=== PATIENT | male | born 1950 | race Caucasian/White ===

== ENCOUNTER 2017-07-23 08:00 | Emergency (ER) | payer MEDICARE, OTHER ==
[2017-07-23 08:14] VITALS: BP 172/70
--- NOTE | 2017-07-23 08:47 | ER Document Report ---
HPI - HPI Pain Level: 5 Notes: Patient is a 66-year-old male with a history of hyperlipidemia who presents the ED complaining of right sided rib pain status post fall 2 days ago. Patient states that he was on a 1 foot high step stool and he fell onto a toolbox on his right side. Patient states that he has had pain since then. He has noticed some bruising developed in the lower right flank. Patient states that movements make the pain worse. Patient does take Naprosyn with minimal relief. He still eating and drinking without difficulties. He still urinating normally and having normal bowel movements. He has not noticed any blood in his urine or stool. Denies any drug allergies. Denies any other significant past medical history. Denies any headache, fever, head injury, neck pain, URI, sore throat, chest pain, palpitations, syncope, cough, shortness of breath, wheeze, dyspnea, abdominal pain, nausea/vomiting/diarrhea, urinary retention, dysuria, hematuria, loss of control of bowel or bladder, numbness/tingling, saddle anesthesia, muscle paralysis/weakness, or rash. - DERM Skin Color: Normal Past Medical History - Social History Smoking Status: Never Smoker Family History: Reviewed & Not Pertinent Patient has suicidal ideation: No Patient has homicidal ideation: No Renal/ Medical History: Denies: Hx Peritoneal Dialysis Vertical Provider Document - CONSTITUTIONAL Agree With Documented VS: Yes Notes: PHYSICAL EXAMINATION: GENERAL: Well-appearing, well-nourished and in no acute distress. HEAD: Atraumatic, normocephalic. EYES: Pupils equal round and reactive to light, extraocular movements intact, sclera anicteric, conjunctiva are normal. ENT: EAC clear b/l. TM's intact b/l without erythema, fluid, or perforation. Nares patent and without discharge. oropharynx clear without exudates. No tonsilar hypertrophy or erythema. Moist mucous membranes. No sinus tenderness. NECK: Normal range of motion, supple without lymphadenopathy LUNGS: Breath sounds clear to auscultation bilaterally and equal. No wheezes rales or rhonchi. HEART: Regular rate and rhythm without murmurs, rubs, gallops. ABDOMEN: Soft, nontender, nondistended abdomen. No guarding, no rebound. No masses appreciated. Normal bowel sounds present. No CVA tenderness bilaterally. No rigidity or ecchymosis noted. Musculoskeletal: LE's b/l: FROM to passive/active. Strength 5+/5. Back: + ecchymosis noted rt inferior flank near the iliac crest that is non- tender. + tenderness to the rt ribs approx #7-10. No vertebral point tenderness. Extremities: No cyanosis, clubbing, or edema b/l. Peripheral pulses 2+. Capillary refill less than 3 seconds. NEUROLOGICAL: Cranial nerves grossly intact. Normal speech, normal gait. Normal sensory, motor exams PSYCH: Normal mood, normal affect. SKIN: Warm, Dry, normal turgor, no rashes or lesions noted. - INFECTION CONTROL TRAVEL OUTSIDE OF THE [place] IN LAST 30 DAYS: No - RESPIRATORY O2 Sat by Pulse Oximetry: 99 Course - Re-evaluation Re-evalutation: 07/23/17 09:55 Patient is an afebrile, well-hydrated, 66-year-old male who presents to the ED with right rib pain, suspect contusion at this time. Vitals are stable. PE is otherwise unremarkable. X-ray was unremarkable for any pneumothorax, fracture or dislocation. reviewed with Dr. Monsalve who is in agreement with dicharge/ plan and we do not have a high suspicion for any organ laceration or internal bleeding at this time. Oxycodone 10 mg given for pain in the ED. Solu-Medrol 125 mg given for inflammation. I will send him with a prescription for a muscle relaxer, Voltaren gel, naproxen, and a short course of tramadol for breakthrough pain only. Conservative measures otherwise for symptoms. Recheck with your PCM in 3-5 days. Consider consult with orthopedics/physical therapy. Return to the ED with any worsening/concerning symptoms otherwise as reviewed in discharge. Patient is in agreement. - Vital Signs Vital signs: Temp Pulse Resp BP Pulse Ox 97.4 F 56 L 20 172/70 H 99 07/23/17 08:03 07/23/17 08:03 07/23/17 08:03 07/23/17 08:03 07/23/17 08:03 Discharge - Discharge Clinical Impression: Contusion of rib on right side Qualifiers: Encounter type: initial encounter Qualified Code(s): S20.211A - Contusion of right front wall of thorax, initial encounter Condition: Stable Disposition: HOME, SELF-CARE Instructions: Rib Contusion ([facility]), Muscle Relaxers ([facility]), Ice Massage ([facility]), Warm Packs ([facility]) Additional Instructions: Rest, Ice Tylenol/ibuprofen as needed Light stretches daily Strength exercises as able Moist heat and massage may help F/u with your PCP in 3-5 days for a recheck Consider consult(s) with Orthopedics/physical therapy for ongoing/worsening symptoms Return to the ED with any worsening symptoms and/or development of fever, headache, chest pain, palpitations, syncope, shortness of breath, trouble breathing, abdominal pain, n/v/d, blood in stool/urine, loss of control of bowel /bladder, urinary retention, muscle weakness/paralysis, saddle anesthesia, numbness/tingling, or other worsening symptoms that are concerning to you. Prescriptions: Baclofen [Baclofen 10 mg Tablet] 5 mg PO BID PRN #10 tablet PRN Reason: Diclofenac Sodium [Voltaren] 4 gm TP QID PRN #100 gel..gm. PRN Reason: Naproxen 500 mg PO BID PRN #30 tablet PRN Reason: Tramadol HCl 50 mg PO TID #15 tablet Forms: Elevated Blood Pressure Referrals: DEMETRIO FLANNERY MD [Primary Care Provider] - Follow up in 3-5 days
--- NOTE | 2017-07-23 09:50 | RADIOLOGY REPORT (SQ) ---
EXAM DESCRIPTION: RIBS RIGHT W/PA CHEST COMPLETED DATE/TIME: 07/23/2017 9:04 am REASON FOR STUDY: Pain to rt lower ribs, ecchymosis COMPARISON: None. TECHNIQUE: Frontal view of the chest and additional views of the right ribs acquired. NUMBER OF VIEWS: PA chest Right rib detail two views LIMITATIONS: None. FINDINGS: FRONTAL CXR: No pneumothorax. No pleural effusion. No atelectasis or infiltrates. Cardi ac silhouette size, brady unremarkable. RIBS: No displaced rib fractures. No lytic or blastic bony lesions. OTHER: No other significant finding. IMPRESSION: NO PNEUMOTHORAX. NO DISPLACED RIB FRACTURES. COMMENT: SITE OF TRAUMA/COMPLAINT MARKED/STAMP COMPLETED: Yes TECHNICAL DOCUMENTATION: JOB ID: [id number] [employer]- All Rights Reserved
[2017-07-23] MEDS ORDERED: OXYCODONE HCL IR 5 MG TABLET PO ONE (09:53)
[2017-07-23] MEDS ORDERED: METHYLPREDNISOLONE INJ 125 MG/2 ML SDV IM ONE (10:04)
== END 2017-07-23 10:45 | disposition home or self-care (01) ==
LOC: ER 08:00
DX: S20.211A Contusion of right front wall of thorax, initial encounter (principal); S30.1XXA Contusion of abdominal wall, initial encounter; W17.89XA Other fall from one level to another, initial encounter
CPT/HCPCS: 99283; 96372; 71101; J2930; A9270

== ENCOUNTER → 2018-03-19 | Outpatient (CLI) | payer MEDICARE, OTHER ==
--- NOTE | 2018-03-20 08:31 | RADIOLOGY REPORT (SQ) ---
EXAM DESCRIPTION: MRI RT LOWER JOINT WITHOUT COMPLETED DATE/TIME: 03/19/2018 10:00 pm REASON FOR STUDY: M25.561 PAIN IN RIGHT KNEE M25.561 PAIN IN RIGHT KNEE COMPARISON: Prior MRI and plain radiographs 2015 TECHNIQUE: Rightknee images acquired and stored on PACS. Multiplanar images include fat sensitive s equences as T1, water sensitive sequences as FST2 or STIR, cartilage sensitive sequences as FSPD, and gradient echo sequences. LIMITATIONS: None. FINDINGS: JOINT AND BURSAE: Small joint effusion. No popliteal cyst. BONE CORTEX AND MARROW: No alteration of signal to suggest marrow replacement. No worrisome bone lesi ons. No occult fracture. ACL: Intact. No degeneration or ganglion cyst. PCL: PCL is abnormal. There is either chronic high-grade partial tear, or marked mucoid degeneration . This is increased since the previous study. MCL: Intact. No periligamentous edema or fluid. LCL: Intact. No periligamentous edema or fluid. MEDIAL MENISCUS: No tears. No abnormal signal. LATERAL MENISCUS: No tears. No abnormal signal. MEDIAL COMPARTMENT: Cartilage preserved. No bone bruises or reactive marrow edema. No osteophytes. LATERAL COMPARTMENT: Cartilage preserved. No bone bruises or reactive marrow edema. No osteophytes. PATELLA: No chondromalacia. No subchondral cysts. Medial and lateral retinacula intact. EXTENSOR MECHANISM: Intact. Quadriceps and patella tendons normal. SOFT TISSUES: Adjacent muscles and subcutaneous tissues normal. Normal flow void in popliteal artery and vein. OTHER: No other significant finding. IMPRESSION: Abnormal signal in the PCL indicating either chronic high-grade partial tear or marked m ucoid degeneration. Increased from previous. Small joint effusion. TECHNICAL DOCUMENTATION: JOB ID: [id number] [employer]- All Rights Reserved Reading location - IP/workstation name: [email or web address]
== END ==
LOC: RAD 20:26
PROVIDERS: ATTEND Orthopaedic Surgery
DX: M25.561 Pain in right knee (principal)

== ENCOUNTER 2020-10-15 11:08 | Emergency (ER) | payer MEDICARE, OTHER ==
[2020-10-15] MEDS ORDERED: DEXAMETHASONE 4 MG TABLET PO ONE (12:42)
[2020-10-15] MEDS ORDERED: IPRATROPIUM/ALBUTEROL 0.5-2.5 MG/3 ML AMPUL NEB ONE (12:42)
--- NOTE | 2020-10-15 13:59 | ER Document Report ---
ED Respiratory Problem - General Chief Complaint: Cough Stated Complaint: COUGH,CHILLS Time Seen by Provider: 10/15/20 12:39 Primary Care Provider: DEMETRIO FLANNERY MD [Primary Care Provider] - Follow up as needed Notes: CHIEF COMPLAINT: Cough for 4 days HPI: 6-year-old male presenting for cough for 4 days. Shortness of breath only with a cough. No chest pain. No abdominal pain headache nausea vomiting. Has taken no medications for his symptoms. He is concerned about Covid. ROS: See HPI - all other systems were reviewed and are otherwise negative Constitutional: no fever Eyes: no drainage, no blurred vision ENT: no runny nose, no sore throat Cardiovascular: no chest pain Resp: + SOB, + cough GI: no vomiting, no diarrhea, no abdominal pain : no dysuria Integumentary: no rash Allergy: no hives Musculoskeletal: no extremity pain or swelling Neurological: no numbness/tingling, no weakness MEDICATIONS: I agree with the patient medications as charted by the RN. ALLERGIES: I agree with the allergies as charted by the RN. PAST MEDICAL HISTORY/PAST SURGICAL HISTORY: Reviewed and agree as charted by RN. SOCIAL HISTORY: Reviewed and agree as charted by RN. FAMILY HISTORY: No significant familial comorbid conditions directly related to patient complaint EXAM: Reviewed vital signs as charted by RN. CONSTITUTIONAL: Alert and oriented and responds appropriately to questions. Well-appearing; well-nourished HEAD: Normocephalic; atraumatic EYES: PERRL; Conjunctivae clear, sclerae non-icteric ENT: normal nose; no rhinorrhea; moist mucous membranes; pharynx without lesions noted, no uvula edema or deviation, no tonsillar hypertrophy, phonation normal NECK: Supple without meningismus; non-tender; no cervical lymphadenopathy, no masses CARD: RRR; no murmurs, no clicks, no rubs, no gallops; symmetric distal pulses RESP: Normal chest excursion without splinting or tachypnea; breath sounds clear and equal bilaterally; no wheezes, no rhonchi, no rales, pulse oximetry 100% on room air not hypoxic. Spastic cough is noted ABD/GI: Normal bowel sounds; non-distended; soft, non-tender, no rebound, no guarding; no palpable organomegaly or masses. BACK: The back appears normal and is non-tender to palpation, there is no CVA tenderness EXT: Normal ROM in all joints; non-tender to palpation; no cyanosis, no effusions, no edema SKIN: Normal color for age and race; warm; dry; good turgor; no acute lesions noted NEURO: Moves all extremities equally; Motor and sensory function intact PSYCH: The patient's mood and manner are appropriate. Grooming and personal hygiene are appropriate. MDM: 69-year-old male with a spastic cough concerned about Covid he is had the cough for 4 days he is only short of breath with coughing episodes. He has had no fevers. No chest pain. I have low suspicion for ACS in this patient at this time will obtain a chest x-ray, give Decadron and breathing treatment, reassess. We will obtain Covid test The patient was evaluated during the global COVID-19 pandemic and that diagnosis was suspected/considered upon their initial presentation. Their evaluation, treatment and testing was consistent with current guidelines for patients who present with complaints or symptoms that may be related to COVID-19 TRAVEL OUTSIDE OF THE [place] IN LAST 30 DAYS: No - Related Data Allergies/Adverse Reactions: No Known Allergies Allergy (Verified 10/15/20 14:11) Past Medical History - Social History Smoking Status: Unknown if Ever Smoked Family History: Reviewed & Not Pertinent Renal/ Medical History: Denies: Hx Peritoneal Dialysis Physical Exam - Vital signs Vitals: Temp Pulse Resp BP Pulse Ox 98.5 F 72 16 134/82 H 100 10/15/20 12:13 10/15/20 12:13 10/15/20 12:13 10/15/20 12:13 10/15/20 12:13 Course - Re-evaluation Re-evalutation: 10/15/20 14:29 Chest x-ray does not show evidence of infiltrate. Patient feels better with less spasm in the cough after breathing treatment. Will discharge home on Decadron, albuterol, Tessalon Perles with strict return precautions he will self quarantine pending his Covid result - Vital Signs Vital signs: Temp Pulse Resp BP Pulse Ox 98.5 F 72 16 134/82 H 100 10/15/20 12:13 10/15/20 12:13 10/15/20 12:13 10/15/20 12:13 10/15/20 12:13 - Laboratory Results Critical Laboratory Results Reviewed: No Critical Results - Radiology Results Critical Radiology Results Reviewed: No Critical Results Discharge - Discharge Clinical Impression: Person under investigation for COVID-19, Bronchospasm, acute Condition: Stable Disposition: HOME, SELF-CARE Additional Instructions: You are considered a person under investigation for COVID-19 at this time so quarantine at home pending your test results which may take 2 to 5 days. You should receive notification from the hospital about your test results. Follow- up with your primary care provider for reevaluation of symptoms call for appointment. Use the Tessalon Perles to help with cough. Take the steroids as prescribed. Use the albuterol inhaler 2 puffs every 4 hours for shortness of breath or coughing Prescriptions: Benzonatate [Tessalon Perles 100 mg Capsule] 100 mg PO Q8HP PRN #40 capsule PRN Reason: Dexamethasone [Decadron 4 Mg Tablet] 4 mg PO DAILY #7 tablet Albuterol Sulfate [Proair HFA Inhalation Aerosol 8.5 gm MDI] 2 puff IH Q4H PRN #1 mdi PRN Reason: Referrals: DEMETRIO FLANNERY MD [Primary Care Provider] - Follow up as needed
--- NOTE | 2020-10-15 14:02 | RADIOLOGY REPORT (SQ) ---
EXAM DESCRIPTION: CHEST SINGLE VIEW IMAGES COMPLETED DATE/TIME: 10/15/2020 1:39 pm REASON FOR STUDY: SOB COMPARISON: 07/23/2017 EXAM PARAMETERS: NUMBER OF VIEWS: One view. TECHNIQUE: Single frontal radiographic view of the chest acquired. RADIATION DOSE: NA LIMITATIONS: None. FINDINGS: LUNGS AND PLEURA: Low lung volumes results in bronchovascular crowding. No focal consolid ation, pleural effusion, or pneumothorax. MEDIASTINUM AND HILAR STRUCTURES: No masses. Contour normal. HEART AND VASCULAR STRUCTURES: Heart normal in size. Normal vasculature. BONES: No acute findings. HARDWARE: None in the chest. OTHER: No other significant finding. IMPRESSION: No evidence of acute cardiopulmonary abnormality. TECHNICAL DOCUMENTATION: JOB ID: [id number] [employer]- All Rights Reserved Reading location - IP/workstation name: [email or web address]
[2020-10-15 15:27] VITALS: BP 140/85
[2020-10-15 19:06] LABS: A TYPE INFLUENZA AG NEGATIVE (NEGATIVE); B INFLUENZA AG NEGATIVE (NEGATIVE)
== END 2020-10-15 15:26 | disposition home or self-care (01) ==
LOC: ER 11:08
DX: U07.1 COVID-19 (principal); J98.01 Acute bronchospasm; R05 Cough; R06.02 Shortness of breath
CPT/HCPCS: 94640; 99284; 87804; 71045; U0003; A9270; C9803; 87635; J8540